=== PATIENT | male | born 1995 | race Caucasian/White ===

== ENCOUNTER 2016-09-16 15:41 | Emergency (ER) | payer OTHER ==
[~2016-09-16] VITALS: Ht 170.2 cm; Wt 117.9 kg
[2016-09-16] MEDS ORDERED: PARO20TA6 PO (15:51)
[2016-09-16] MEDS ORDERED: LAMO100T PO (15:51)
== END 2016-09-16 16:28 | disposition home or self-care (01) ==
LOC: ER 16:01
DX: Z76.0 Encounter for issue of repeat prescription (principal); F31.9 Bipolar disorder, unspecified; F41.9 Anxiety disorder, unspecified
CPT/HCPCS: 99283; A4663

== ENCOUNTER 2017-01-31 23:19 | Emergency (ER) | payer MEDICAID, OTHER ==
[~2017-01-31] VITALS: Ht 170.2 cm; Wt 117.9 kg
[~2017-01-31 23:19] MED LIST: LAMO100T PO; PARO20TA7 PO
--- NOTE | 2017-01-31 23:44 | NUR ---
Patient discharged to home in stable conditon. Written and verbal after care instructions given. Patient verbalizes understanding of instructions.
== END 2017-01-31 23:45 | disposition home or self-care (01) ==
LOC: ER 23:21
DX: F41.9 Anxiety disorder, unspecified (principal); F31.9 Bipolar disorder, unspecified; I10 Essential (primary) hypertension; Z79.899 Other long term (current) drug therapy
CPT/HCPCS: A4663

== ENCOUNTER 2017-03-08 19:16 | Emergency (ER) | payer MEDICAID, OTHER ==
[~2017-03-08] VITALS: Ht 170.2 cm; Wt 117.9 kg
--- NOTE | 2017-03-08 19:46 | NUR ---
Patient discharged to home in stable conditon. Written and verbal after care instructions given. Patient verbalizes understanding of instructions.
== END 2017-03-08 19:47 | disposition home or self-care (01) ==
LOC: ER 19:18
DX: G89.29 Other chronic pain (principal); M25.562 Pain in left knee; M25.561 Pain in right knee; Z76.0 Encounter for issue of repeat prescription; F17.200 Nicotine dependence, unspecified, uncomplicated
CPT/HCPCS: 99283; 99406; A4663

== ENCOUNTER 2017-05-11 22:50 | Emergency (ER) | payer MEDICAID, OTHER ==
[~2017-05-11] VITALS: Ht 170.2 cm; Wt 120.2 kg
--- NOTE | 2017-05-11 23:27 | NUR ---
Dr. Lincoln at bedside for MSE
[2017-05-11] MEDS ORDERED: DIAZEPAM 2 MG TABLET PO ONE (23:45)
--- NOTE | 2017-05-11 23:45 | NUR ---
Pt stable for discharge per Dr. Lincoln. Pt given ACI. Pt verbalized understanding of dc instructions. Pt ambulated out of ER with steady gait and ride home.
[2017-05-11] MEDS ORDERED: DIAZEPAM 5 MG TABLET ONE (23:56)
[2017-05-11 23:58] VITALS: BP 159/95
== END 2017-05-11 23:45 | disposition home or self-care (01) ==
LOC: ER 22:51
DX: Z76.0 Encounter for issue of repeat prescription (principal); G89.29 Other chronic pain; M25.561 Pain in right knee; M25.562 Pain in left knee; F41.9 Anxiety disorder, unspecified; F31.9 Bipolar disorder, unspecified; F17.200 Nicotine dependence, unspecified, uncomplicated
CPT/HCPCS: 99284; 99406; A4663

== ENCOUNTER 2017-07-31 17:30 | Emergency (ER) | payer OTHER ==
[~2017-07-31] VITALS: Ht 170.2 cm; Wt 113.4 kg
--- NOTE | 2017-07-31 17:49 | NUR ---
PATIENT WA SEEN BY DR RESTREPO FOR KNEE PAIN. NORCO GIVEN ORDERED.
--- NOTE | 2017-07-31 17:55 | NUR ---
DC, RX (INCLUDING PRECAUTIONS) GIVEN AND EXPLAINED TO PATIENT WHO STATES HE UNDERSTANDS ALL INSTRUCTIONS.
[2017-07-31] MEDS ORDERED: HYDROCODONE/APAP 5-325MG TABLET PO ONE (18:00)
[2017-07-31] MEDS ORDERED: HYDROCODONE/APAP 5-325MG TABLET ONE (18:06)
== END 2017-07-31 17:56 | disposition home or self-care (01) ==
LOC: ER 17:32
DX: G89.29 Other chronic pain (principal); M23.91 Unspecified internal derangement of right knee; M25.561 Pain in right knee; F17.200 Nicotine dependence, unspecified, uncomplicated
CPT/HCPCS: A4663

== ENCOUNTER 2018-04-07 17:42 | Emergency (ER) | payer OTHER ==
[~2018-04-07] VITALS: Ht 170.2 cm; Wt 117.9 kg
[2018-04-07] MEDS ORDERED: KETOROLAC TROMETHAMINE 30 MG INJ ONE (18:06)
[2018-04-07] MEDS ORDERED: TDAP DIPH,PERTUSS,TET VAC/PF 0.5 ML DISP.SYRIN IM ONE ×2 (18:06→18:15)
[2018-04-07] MEDS ORDERED: KETOROLAC TROMETHAMINE 30 MG INJ IM ONE (18:15)
[2018-04-07 18:46] VITALS: BP 141/77
--- NOTE | 2018-04-07 18:46 | NUR ---
PT WAS EVALUATED BY DR FARRELL. PT WAS D/C TO HOME. D/C INSTRUCTIONS GIVEN TO THE PT.
== END 2018-04-07 18:47 | disposition home or self-care (01) ==
LOC: ER 17:44
DX: M25.571 Pain in right ankle and joints of right foot (principal); M25.562 Pain in left knee; F17.200 Nicotine dependence, unspecified, uncomplicated; Z88.8 Allergy status to other drugs, medicaments and biological substances
CPT/HCPCS: 29515; 73564; 73610; 90471; 90715; 96372; 99284; 99406; A4663; J1885

== ENCOUNTER 2018-04-11 10:18 | Emergency (ER) | payer OTHER ==
[~2018-04-11] VITALS: Ht 170.2 cm; Wt 117.9 kg
--- NOTE | 2018-04-11 10:23 | NUR ---
Dr Molina at the bedside for MSE.
[2018-04-11] MEDS ORDERED: ONDANSETRON 4 MG/2 ML VIAL ONE (10:34)
[2018-04-11] MEDS: ONDANSETRON 4 MG/2 ML VIAL IV ONE (10:36)
[2018-04-11] MEDS: IV NORMAL SALINE 500 ML BAG IV ONE (10:38)
[2018-04-11 10:40] LABS: BASOPHILS # (AUTO) 0.1 K/uL (0.0-8.0); BASOPHILS % (AUTO) 0.6 % (0.0-2.0); EOSINOPHILS # (AUTO) 0.2 K/uL (0.0-0.7); EOSINOPHILS % (AUTO) 1.9 % (0.0-7.0); HEMATOCRIT 40.3 % (36.7-47.1); LYMPHOCYTES # (AUTO) 1.8 K/uL (20.0-40.0); LYMPHOCYTES % (AUTO) 19.3 % (20.5-51.5); MEAN CORPUSCULAR HEMOGLOBIN 30.6 uug (23.8-33.4); MEAN CORPUSCULAR HGB CONC 35 g/dL (32.5-36.3); MEAN CORPUSCULAR VOLUME 88.1 fL (73.0-96.2); MONOCYTES # (AUTO) 0.7 K/uL (2.0-10.0); MONOCYTES % (AUTO) 8.1 % (0.0-11.0); NEUTROPHILS # (AUTO) 6.5 K/uL (1.8-8.9); NEUTROPHILS % (AUTO) 70.1 % (38.5-71.5); PLATELET COUNT (AUTO) 311 K/uL (152-348); RED BLOOD CELL COUNT(AUTO) 4.57 MIL/uL (4.06-5.63); WHITE BLOOD COUNT (AUTO) 9.2 K/uL (3.6-10.2)
[2018-04-11 10:45] LABS: CREATININE 2.2 mg/dL (0.6-1.3)
[2018-04-11 10:50] LABS: BILIRUBIN,DIRECT 0.1 mg/dL (0.0-0.2); BILIRUBIN,TOTAL 0.4 mg/dL (0.2-1.0); TOTAL PROTEIN, SERUM 7.9 g/dL (6.4-8.2)
[2018-04-11] MEDS ORDERED: MORPHINE SULFATE 4 MG/1 ML DISP.SYRIN ONE (11:11)
[2018-04-11] MEDS: MORPHINE SULFATE 4 MG/1 ML DISP.SYRIN IV ONE (11:13)
[2018-04-11] MEDS: IV NORMAL SALINE 1000 ML BAG IV ONE (11:15)
[2018-04-11] MEDS ORDERED: METOCLOPRAMIDE HCL 10 MG/2 ML VIAL ONE (11:24)
[2018-04-11] MEDS: METOCLOPRAMIDE HCL 10 MG/2 ML VIAL IV ONE (11:25)
[2018-04-11 11:26] LABS: *BILIRUBIN,URIN NEGATIVE (NEGATIVE); *BLOOD, URINE NEGATIVE (NEGATIVE); *CLARITY,URINE CLEAR (CLEAR); *COLOR,URINE YELLOW (YELLOW); *KETONES,URINE NEGATIVE (NEGATIVE); *PROTEIN,URINE NEGATIVE (NEGATIVE); *UROBILINOGEN,URINE 0.2 E.U./dl (NORMAL); LEUKOCYTE ESTERASE ,URINE NEGATIVE (NEGATIVE); NITRITE, URINE NEGATIVE (NEGATIVE); PH,URINE 5.5 (5.0-8.0); UGLUCOSE NEGATIVE (NEGATIVE)
[2018-04-11 12:55] LABS: RBC,URINE NONE SEEN /HPF (0-3); WBC,URINE NONE SEEN /HPF (0-3)
[2018-04-11 12:56] LABS: BACTERIA,URINE NONE SEEN /HPF (NONE SEEN); SQUAMOUS EPITHELIAL CELL,UR NONE SEEN /HPF (NONE SEEN)
--- NOTE | 2018-04-11 13:12 | NUR ---
IV removed. Catheter intact and site benign. Pressure and 4x4 gauze applied to site. No bleeding noted.
--- NOTE | 2018-04-11 13:16 | NUR ---
Patient discharged to home in stable conditon. Written and verbal after care instructions given. Patient verbalizes understanding of instructions.
[2018-04-11 13:17] VITALS: BP 121/78
== END 2018-04-11 13:18 | disposition home or self-care (01) ==
LOC: ER 10:18
DX: N28.9 Disorder of kidney and ureter, unspecified (principal); R11.10 Vomiting, unspecified; R19.7 Diarrhea, unspecified; R10.9 Unspecified abdominal pain; Z88.8 Allergy status to other drugs, medicaments and biological substances; F17.200 Nicotine dependence, unspecified, uncomplicated
CPT/HCPCS: 36415; 71045; 76700; 83690; 85025; 93005; A4663; J2270; J2405; J2765; J7030; J7040

== ENCOUNTER 2020-01-04 20:22 | Emergency (ER) | payer BC, MEDICAID, OTHER ==
[~2020-01-04] VITALS: Ht 172.7 cm; Wt 131.5 kg
[~2020-01-04 20:22] MED LIST changes: -LAMO100T PO; +LAMO100T17 PO
[2020-01-04] MEDS ORDERED: ALPR2TAB7 PO (20:32)
[2020-01-04] MEDS ORDERED: LOSA100T31 PO (20:32)
--- NOTE | 2020-01-04 20:33 | NUR ---
Dr. Leggett at bedside for MSE.
--- NOTE | 2020-01-04 20:39 | NUR ---
Patient discharged to home in stable condition. Written and verbal after care instructions given. Patient verbalizes understanding of instructions. Stressed follow up or return to ER for worsening s/s. Patient ambulated out of ER with steady gait, no acute signs of distress, VSS, all belongings taken.
[2020-01-04 20:42] VITALS: BP 176/111
== END 2020-01-04 20:53 | disposition home or self-care (01) ==
LOC: ER 20:25
DX: Z76.0 Encounter for issue of repeat prescription (principal); F41.9 Anxiety disorder, unspecified
CPT/HCPCS: A4663